=== PATIENT | female | born 1980 | race Caucasian/White ===

== ENCOUNTER 2023-02-15 18:44 | Emergency (ER) | payer SELFPAY ==
[~2023-02-15] VITALS: Ht 167.6 cm; Wt 50.0 kg
[2023-02-15 18:46] VITALS: BP 152/92; PULSE 106; RESP 20; TEMP 98.1; O2SAT 98
== END 2023-02-15 21:12 | disposition left against medical advice (07) ==
LOC: ER 18:44
DX: R11.2 Nausea with vomiting, unspecified (principal); Z53.21 Procedure and treatment not carried out due to patient leaving prior to being seen by health care provider
CPT/HCPCS: 99281

== ENCOUNTER 2025-04-30 08:51 | Inpatient (IN) | payer SELFPAY ==
[~2025-04-30] VITALS: Ht 157.5 cm; Wt 53.1 kg
[2025-04-30 08:52] VITALS: O2SAT 99
[2025-04-30 09:56] LABS: BASOPHILS % 0.7 % (0.0-2.0); EOSINOPHILS % 0.0 % (0.0-5.0); HEMATOCRIT. 42.0 % (36.0-48.0); HEMOGLOBIN. 14.3 g/dL (12.0-16.0); LYMPHOCYTES % 13.2 % (20.0-50.0); MEAN PLATELET VOLUME 8.3 fl (7.4-10.4); MONOCYTES % 6.4 % (2.0-8.0); NEUTROPHILS % 79.7 % (40.0-76.0); PLATELET 166 x1000/uL (130-400); RED BLOOD CELL COUNT 4.73 mill/uL (4.2-5.4); RED CELL DISTRIBUTION WIDTH 13.4 % (11.6-14.6)
[2025-04-30 10:07] LABS: CLARITY URINE CLOUDY (CLEAR); COLOR URINE DARK YELLOW (YELLOW); GLUCOSE URINE NEGATIVE (NEGATIVE); KETONES URINE TRACE (NEGATIVE); LEUKOCYTE ESTERASE URINE 3+ (NEGATIVE); NITRITE URINE NEGATIVE (NEGATIVE); OCCULT BLOOD URINE TRACE (NEGATIVE); PH URINE 5.5 (4.5-8.0); PROTEIN URINE 1+ (NEGATIVE); SPECIFIC GRAVITY URINE 1.027 (1.005-1.030); UROBILINOGEN URINE 1.0 E.U./dL (0.2-1.0)
[2025-04-30] MEDS: ONDANSETRON HCL 4MG/2ML INJ IV ONE (10:12)
[2025-04-30] MEDS: LACTATED RINGERS 500 ML IV SCH (10:13)
[2025-04-30] MEDS: ACETAMINOPHEN 325MG TABLET PO ONE (10:13)
[2025-04-30 10:18] LABS: CREATININE 0.8 mg/dL (0.6-1.0); TROPONIN I HIGH SENSITIVITY 7 ng/L (3.0-34)
[2025-04-30 10:19] LABS: PROTEIN TOTAL 6.9 g/dL (6.0-8.3); UREA NITROGEN BLOOD 10 mg/dL (9-23)
[2025-04-30 10:20] LABS: ASPARTATE AMINOTRANSFERASE 34 IU/L (<34)
[2025-04-30 10:21] LABS: BILIRUBIN DIRECT 0.2 mg/dL (<=3.0); BILIRUBIN TOTAL 0.6 mg/dL (0.1-1.0)
[2025-04-30 10:26] LABS: HCG SCREEN NEGATIVE
[2025-04-30 10:31] LABS: SQUAMOUS EPITHELIAL CELL URINE 2+ /lpf (RARE/1+)
[2025-04-30 10:32] LABS: BACTERIA URINE 1+; WBC URINE 25-50 /hpf (0-2)
[2025-04-30 10:33] LABS: TRICHOMONAS URINE FEW
[2025-04-30] MEDS ORDERED: CEFEPIME 1GM IN DEXT 5% 50ML IV STA (10:45)
[2025-04-30] MEDS: CEFEPIME 1GM PREMIX 50ML IV NR (11:25)
[2025-04-30] MEDS ORDERED: ACETAMINOPHEN 325MG TABLET PO PRN (11:30)
[2025-04-30] MEDS ORDERED: ONDANSETRON HCL 4MG/2ML INJ IV PRN (11:30)
[2025-04-30] MEDS ORDERED: IPRATROPIUM/ALBUTEROL 0.5-3(2.5)MG/3ML NEB HHN PRN (11:30)
[2025-04-30] MEDS ORDERED: CLONIDINE 0.1MG TABLET PO PRN (11:30)
[2025-04-30] MEDS ORDERED: DOCUSATE SODIUM 100MG CAPSULE PO PRN (11:30)
[2025-04-30] MEDS ORDERED: CEFTRIAXONE 2GM/50ML 50 ML IV SCH (11:45)
[2025-04-30] MEDS ORDERED: METRONIDAZOLE 250 MG PREMIX 50 ML IV SCH (12:00)
[2025-04-30] MEDS: METRONIDAZOLE 500MG PREMIX 100ML IV SCH (12:20)
[2025-04-30] MEDS: ENOXAPARIN 40MG/0.4ML SYR SUBCUT SCH (12:22)
[2025-04-30 12:34] LABS: TROPONIN I HIGH SENSITIVITY 8 ng/L (3.0-34)
[2025-04-30 12:35] LABS: PHOSPHORUS 3.4 mg/dL (2.5-4.9)
[2025-04-30] MEDS: SODIUM CHLORIDE 0.9% 1,000 ML IV SCH (14:30)
[2025-04-30 15:07] LABS: HEPATITIS A AB IGM NEGATIVE (Negative); HEPATITIS B CORE AB IGM NEGATIVE (Negative)
[2025-04-30 15:15] LABS: HEPATITIS C AB REACTIVE (Pos) (Negative)
[2025-04-30 15:44] LABS: TROPONIN I HIGH SENSITIVITY 7 ng/L (3.0-34)
[2025-04-30] MEDS: CEFTRIAXONE 2GM/50ML 50 ML IV SCH (18:15)
[2025-04-30] MEDS: IBUPROFEN 200MG TABLET PO NR (18:25)
[2025-04-30] MEDS ORDERED: CALCIUM CHLORIDE 1GM/10ML SYR IV SCH (18:30)
[2025-04-30 23:00] VITALS: BP 91/62; PULSE 74; RESP 18; TEMP 37.3632
[2025-04-30] MEDS: FAMOTIDINE 20MG TABLET PO SCH (23:04)
[2025-04-30] MEDS: ACETAMINOPHEN 1000MG/100ML 100 ML IV SCH (23:04)
[2025-05-01 00:54] LABS: TROPONIN I HIGH SENSITIVITY 8 ng/L (3.0-34)
[2025-05-01 04:00] VITALS: BP 98/60; PULSE 68; RESP 18; TEMP 36; O2SAT 98
[2025-05-01 04:38] LABS: *AMPHETAMINES SCREEN URINE PRESUMPTIVE POSITIVE (NEGATIVE); *BARBITURATES SCREEN URINE NEGATIVE (NEGATIVE); *BENZODIAZEPINES SCREEN URINE NEGATIVE (NEGATIVE); *COCAINE SCREEN URINE NEGATIVE (NEGATIVE); METHADONE URINE SCREEN NEGATIVE (NEGATIVE)
[2025-05-01 04:39] LABS: CANNABINOID URINE SCREEN NEGATIVE (NEGATIVE); ECSTASY MDMA SCREEN URINE NEGATIVE (NEGATIVE); OPIATES URINE SCREEN NEGATIVE (NEGATIVE); PHENCYCLIDINE URINE SCREEN NEGATIVE (NEGATIVE)
[2025-05-01] MEDS: ACETAMINOPHEN 325MG TABLET PO PRN (05:40)
[2025-05-01] MEDS ORDERED: KETOROLAC 30MG/ML VIAL IV NR (06:30)
[2025-05-01] MEDS: CEFTRIAXONE 2GM/50ML 50 ML IV SCH (09:26)
[2025-05-01] MEDS ORDERED: SULF1TAB48 MT (12:15)
[2025-05-01] MEDS ORDERED: METR-167 MT (12:17)
== END 2025-05-01 12:53 | disposition left against medical advice (07) | DRG 249 ==
LOC: ER 08:51 → EDBEDREQTM 10:55 → EDBEDREQ 10:55 → 7WST 19:51
PROVIDERS: ADMIT Internal Medicine; ATTEND Internal Medicine
DX: A08.4 Viral intestinal infection, unspecified (principal); E46 Unspecified protein-calorie malnutrition; K21.9 Gastro-esophageal reflux disease without esophagitis; A59.9 Trichomoniasis, unspecified; G43.909 Migraine, unspecified, not intractable, without status migrainosus; G47.10 Hypersomnia, unspecified; N39.0 Urinary tract infection, site not specified; N12 Tubulo-interstitial nephritis, not specified as acute or chronic; Z53.29 Procedure and treatment not carried out because of patient's decision for other reasons; R16.1 Splenomegaly, not elsewhere classified; M47.9 Spondylosis, unspecified; Z79.899 Other long term (current) drug therapy; Z91.040 Latex allergy status; Z68.21 Body mass index [BMI] 21.0-21.9, adult
CPT/HCPCS: 36415; 71045; 73560; 74176; 76770; 80048; 80076; 80305; 81003; 82550; 83036; 83735; 83935; 84100; 84484; 84703; 85025; 86705; 86709; 87340; 93005; 96365; 96375; 99285; J0692; J0696; J1650; J2405; J3490; J0131